=== PATIENT | female | born 1955 | race Caucasian/White ===

== ENCOUNTER 2018-09-26 20:41 | Observation (INO) ==
[2018-09-26] MEDS ORDERED: cefTRIAXone 1,000 MG in Water for inj. (sterile) 20 ML 10 ML IVP ONE (20:55)
[2018-09-26] MEDS ORDERED: Acetaminophen 325 MG TABLET PO ONE (20:55)
[2018-09-26] MEDS ORDERED: 0.9 % Sodium Chloride 1,000 ML IVC ONE ×2 (20:55→22:46)
[2018-09-26] MEDS ORDERED: Ondansetron 4 MG/2 ML VIAL IVP ONE (20:58)
[2018-09-26] MEDS ORDERED: methylPREDNISolone 125 MG in 0.9 % Sodium Chloride 100 ML IVPB ONE (21:04)
--- NOTE | 2018-09-26 21:05 | Emergency Department Note ---
Disposition Clinical Impression: Hyponatremia Fever Qualifiers: Fever type: unspecified Qualified Code(s): R50.9 - Fever, unspecified Disposition: Admitted As Inpatient Referrals: Liya Vivar CNP [Primary Care Provider] - Time of Disposition: 23:09 General Adult HPI - General Stated complaint: fever Time Seen by Provider: 09/26/18 20:55 Source: patient, EMS Mode of arrival: ambulatory Limitations: no limitations Nursing Notes Reviewed: Yes Vital Signs Reviewed: Yes - History of Present Illness HPI Narrative: Patient presents to the emergency department from EMS. Should the hospital until September 18. She had been treated for [place] nephritis and hyponatremia, GI bleed. The patient indicates that she has felt ill for several weeks. Fatigue reviewed, malaise, weakness, today she is that she had a fever, she has had some dysuria, she denies any cough, she reports nausea without vomiting, reports no diarrhea but does have urge to defecate. Denies any hematochezia but reports dark stool, denies any abdominal pain, chest pain, palpitations, shortness of breath History was augmented with electronic medical record of her recent visit and hospitalization at [facility] Onset (ago): week(s) Pain Scale: 0 Associated symptoms: Reports: confusion, cough, diaphoresis, fever/chills, loss of appetite, malaise, nausea/vomiting, weakness. Denies: chest pain, headaches, rash, seizure, shortness of breath, syncope - Related Data Home Medications Medication Instructions Recorded Confirmed Albuterol Sulfate [Proair Hfa] 2 puff IH Q4H PRN 11/11/16 09/26/18 Lisinopril [Zestril] 5 mg PO DAILY 11/11/16 09/26/18 Montelukast [Singulair] 10 mg PO DAILY 11/11/16 09/26/18 Simvastatin [Zocor] 40 mg PO HS 11/11/16 09/26/18 predniSONE [PredniSONE] 2 mg PO DAILY 11/12/16 09/26/18 Baclofen [Lioresal] 10 mg PO Q8H PRN 07/15/17 09/26/18 Levothyroxine [Synthroid] 100 mcg PO 0630 07/07/18 09/26/18 Loratadine [Allergy Relief] 10 mg PO DAILY 07/07/18 09/26/18 Omeprazole [PriLOSEC] 40 mg PO DAILY 07/07/18 09/26/18 Sennosides [Senna] 17.2 mg PO DAILY PRN 09/13/18 09/26/18 Sodium Chloride [Sodium Chloride 1 gm PO DAILY 09/13/18 09/26/18 Tab] Tiotropium [place] [Spiriva 2 puff IH DAILY 09/13/18 09/26/18 Respimat] Previous Rx's Medication Instructions Recorded Metoprolol [Lopressor] 12.5 mg PO BID #0 09/16/18 Ondansetron ODT [Zofran ODT] 4 mg PO Q6H PRN 14 Days #12 09/16/18 tab.rapdis Warfarin [Coumadin] 6 mg PO 1800 30 Days #30 tablet 09/16/18 Calcium Carb, Citrate/Vit D3 1 each PO TID 30 Days #90 tablet.er 09/18/18 [Calcium + D3 ER Tablet] Docusate [Colace] 100 mg PO BID PRN capsule 09/18/18 Potassium Chloride [K-Tab ER] 10 meq PO BID #60 tablet.er 09/18/18 Allergies Allergy/AdvReac Type Severity Reaction Status Date / Time No Known Allergies Allergy Verified 09/26/18 22:25 All systems ED: reviewed and negative except as stated. Review of Systems: As Per HPI Past Medical History - Past Medical History Medical history: Reports: arthritis, asthma, COPD, GERD, other Psychiatric history: Reports: no psych history - Social History Smoking Status: Former smoker Smokeless Tobacco Status: No Alcohol use: Reports: none Drug use: Reports: none Physical Exam Constitutional: Patient is oriented to person, place, and time. Skin color is pink. Appears well hydrated, body habitus obese, elderly, debilitated, appears older than her stated age . Appears acutely ill, feverish, and possibly toxic Head: Normocephalic and atraumatic. External ear exam normal Nose: Nose normal. Mouth/Throat: Uvula is midline, oropharynx is clear and moist and mucous membranes are normal. Eyes: Conjunctivae nl, extraocular motions and lids are normal. Pupils are equal, round, and reactive to light. Neck: Normal range of motion and phonation normal. Neck supple. Cardiovascular: Normal rate, regular rhythm, normal heart sounds. Pulmonary/Chest: No Respiratory distress. Respiratory Effort normal and breath sounds clear. Abdominal: Soft. Normal appearance and bowel sounds are normal. no tenderness, no masses, no guarding, no rebound Musculoskeletal: Good distal pulses. Soft compartments. Brisk cap refill. Extremities: Normal range of motion.Intact peripheral pulses. No Edema. Extremity skin color nl, no calf tenderness or palpable cords. Neurological: GCS 15. Does take some time to answer questions. Seemed to be delayed in her responses. But she is accurate and appropriate no focal weakness Patient is alert and oriented without evidence of obvious motor deficits Skin: Skin is intact. color is pale, hot, dry, cap refill is slightly delayed at the extremities Psychiatric: Patient has depressed mood and affect. Patient speech is normal and behavior is normal. Thought content normal. - General Limitations: no limitations General appearance: alert Course - Reevaluation(s) Reevaluation #1: Patient remains cooperative, conversational, appropriate. I explained test results to she and her family. The patient will require hospitalization because of the high fever. I did speak with Dr. Bruner combination operator for the patient's primar y nurse practitioner and decision was made after consultation that the patient is appropriate to be admitted here at [facility]. Dr. Bruner and agreed to accept patient in for admission. We talked about the patient's status, recent hospitalization, recent diagnoses, lab testing, chronic hyponatremia, and current presentation. We discussed specifically antibiotic choice and reevaluated recent micro-biology testing and sensitivities. She requested Levaquin be started and continued daily. We talked about warfarin and the patient states that she is on 6.5 mg and has not taken the dose tonight as she usually takes it in the evening. The patient and I also discussed CODE STATUS and she prefers to be resuscitated, full code. I reevaluated the patient after the urine came back which was negative. I reexamined her and she has no stiff neck, no signs of any meningeal irritation. She is no altered mental status. There is no skin changes or signs of abscess or cellulitis. Lower extremities without signs of DVT. Dr. Bruner requested that I write orders for admission as a courtesy and I have agreed to do so Time: 23:07 Vital Signs Temperature 103.1 F H 09/26/18 20:57 Pulse Rate 108 09/26/18 20:57 Respiratory Rate 22 09/26/18 20:57 Blood Pressure 113/57 09/26/18 20:57 O2 Sat by Pulse Oximetry 96 09/26/18 20:57 Temperature 99.8 F H 09/26/18 22:38 Pulse Rate 85 09/26/18 23:14 Respiratory Rate 22 09/26/18 20:57 Blood Pressure 104/56 09/26/18 23:14 O2 Sat by Pulse Oximetry 95 09/26/18 23:14 Oxygen Delivery Oxygen Delivery Nasal Cannula Medical Decision Making - MDM Narrative Medical decision making narrative: Patient has high fever and recent hospitalization with pyelonephritis. Likely same. May require repeat hospitalization. - Medical Records Medical records reviewed: Yes I reviewed the patient's medical records. - Lab Data Lab results reviewed: Yes I reviewed the patient's lab results. Result diagrams: 09/26/18 21:50 09/26/18 21:50 Lab Results 09/26/18 09/26/18 09/26/18 Range/Units 21:50 21:50 21:50 WBC 6.3 (4.3-11.1) K/mcL RBC 4.07 (3.82-4.97) M/mcL Hgb 10.4 L (11.5-15.4) g/dL Hct 32.2 L (35.3-44.9) % MCV 79.1 L (83.0-100.0) fL MCH 25.6 L (28.0-33.3) pg MCHC 32.3 (31.6-35.5) g/dL RDW 18.2 H (11.5-14.5) % Plt Count TNP MPV 12.3 (9.4-12.4) fL Immature Gran % 0.6 (0-4) % Seg Neutrophils % 82.1 % Lymphocytes % 9.4 % Monocytes % 7.6 % Eosinophils % 0.0 % Basophils % 0.3 % Neutrophils # 5.2 (1.6-8.9) K/mcL Lymphocytes # 0.6 (0.6-4.6) K/mcL Monocytes # 0.5 (0.0-1.3) K/mcL Eosinophils # 0.0 (0.0-0.6) K/mcL Basophils # 0.0 (0.0-0.2) K/mcL Platelet Estimate Slight Decrease L (Normal) Plt Count ,Citrate (140-400) K/mcL PT (9.4-12.1) Seconds INR Sodium 127 L (136-145) mEq/L Potassium 4.0 (3.5-5.1) mEq/L Chloride 96 L (98-107) mEq/L Carbon Dioxide 26 (23-29) mEq/L BUN 13 (8-23) mg/dL Creatinine 1.30 H (0.60-1.20) mg/dL Est GFR ( Amer) 50 L (> 60) Est GFR (Non-Af Amer) 41 L (> 60) BUN/Creatinine Ratio 10 (6-26) Glucose 120 H (70-105) mg/dL Calculated Osmolality 265 L (280-300) Lactic Acid 1.1 (0.5-2.2) mmol/L Calcium 8.2 L (8.6-10.3) mg/dL Total Bilirubin 0.8 (0.3-1.0) mg/dL Direct Bilirubin 0.3 H (0.0-0.2) mg/dL Indirect Bilirubin 0.5 (0.0-1.2) mg/dL AST 36 (13-39) Units/L ALT 25 (7-52) Units/L Alkaline Phosphatase 137 H (34-104) Units/L Troponin I 0.03 (< 0.04) ng/mL Serum Total Protein 6.9 (6.4-8.9) g/dL Albumin 2.7 L (3.5-5.7) g/dL Globulin 4.2 H (2.4-3.5) g/dL Albumin/Globulin Ratio 0.6 L (1.1-2.2) Urine Color (Yellow) Urine Clarity (Clear) Urine pH (5.0-8.0) pH Units Ur Specific [place] (1.010-1.025) Urine Protein (Neg-Trace) mg/dL Urine Glucose (UA) (Normal) mg/dL Urine Ketones (Negative) mg/dL Urine Blood (Negative) Urine Nitrite (Negative) Urine Bilirubin (Negative) Urine Urobilinogen (Normal) mg/dL Ur Leukocyte Esterase (Negative) Urine Microscopic RBC (0-3) per hpf Ur Squamous Epith Cells (None-Few) per lpf Amorphous Sediment (Few) Ur Culture Indicated? (NO) 09/26/18 09/26/18 09/26/18 Range/Units 21:50 21:50 22:30 WBC (4.3-11.1) K/mcL RBC (3.82-4.97) M/mcL Hgb (11.5-15.4) g/dL Hct (35.3-44.9) % MCV (83.0-100.0) fL MCH (28.0-33.3) pg MCHC (31.6-35.5) g/dL RDW (11.5-14.5) % Plt Count MPV 10.1 (9.4-12.4) fL Immature Gran % (0-4) % Seg Neutrophils % % Lymphocytes % % Monocytes % % Eosinophils % % Basophils % % Neutrophils # (1.6-8.9) K/mcL Lymphocytes # (0.6-4.6) K/mcL Monocytes # (0.0-1.3) K/mcL Eosinophils # (0.0-0.6) K/mcL Basophils # (0.0-0.2) K/mcL Platelet Estimate (Normal) Plt Count ,Citrate 96 L (140-400) K/mcL PT 17.7 H (9.4-12.1) Seconds INR 1.6 Sodium (136-145) mEq/L Potassium (3.5-5.1) mEq/L Chloride (98-107) mEq/L Carbon Dioxide (23-29) mEq/L BUN (8-23) mg/dL Creatinine (0.60-1.20) mg/dL Est GFR ( Amer) (> 60) Est GFR (Non-Af Amer) (> 60) BUN/Creatinine Ratio (6-26) Glucose (70-105) mg/dL Calculated Osmolality (280-300) Lactic Acid (0.5-2.2) mmol/L Calcium (8.6-10.3) mg/dL Total Bilirubin (0.3-1.0) mg/dL Direct Bilirubin (0.0-0.2) mg/dL Indirect Bilirubin (0.0-1.2) mg/dL AST (13-39) Units/L ALT (7-52) Units/L Alkaline Phosphatase (34-104) Units/L Troponin I (< 0.04) ng/mL Serum Total Protein (6.4-8.9) g/dL Albumin (3.5-5.7) g/dL Globulin (2.4-3.5) g/dL Albumin/Globulin Ratio (1.1-2.2) Urine Color Yellow (Yellow) Urine Clarity Slightly Cloudy A (Clear) Urine pH 6.0 (5.0-8.0) pH Units Ur Specific [place] 1.010 (1.010-1.025) Urine Protein Trace (Neg-Trace) mg/dL Urine Glucose (UA) Normal (Normal) mg/dL Urine Ketones Negative (Negative) mg/dL Urine Blood Trace-lysed H (Negative) Urine Nitrite Negative (Negative) Urine Bilirubin Negative (Negative) Urine Urobilinogen Normal (Normal) mg/dL Ur Leukocyte Esterase Negative (Negative) Urine Microscopic RBC 0-3 (0-3) per hpf Ur Squamous Epith Cells Few (None-Few) per lpf Amorphous Sediment Few (Few) Ur Culture Indicated? NO (NO) - Radiology Data Radiology results reviewed: Yes I reviewed the patient's radiology results. port CXR: impression from rad: " stable port study" - EKG Data EKG #1 EKG attestation: Yes I reviewed and interpreted this EKG. EKG results narrative: ECG sinus rhythm rate of 101. Sinus tachycardia. Incomplete right bundle- branch block. Deep T-wave inversion V1 and V2. Compared to previous ECG on 09/12. Same changes. V1 and V2 appear same. Unchanged
[2018-09-26] MEDS ORDERED: 0.9 % Sodium Chloride 1,000 ML IVC SCH ×2 (21:15→23:41)
[2018-09-26 21:57] LABS: Basophils % 0.3 %; Hematocrit 32.2 % (35.3-44.9); Hemoglobin 10.4 g/dL (11.5-15.4); Immature Granulocytes % 0.6 % (0-4); Lymphocytes # 0.6 K/mcL (0.6-4.6); Lymphocytes % 9.4 %; Mean Corpuscular HGB Conc 32.3 g/dL (31.6-35.5); Mean Corpuscular Hemoglobin 25.6 pg (28.0-33.3); Mean Corpuscular Volume 79.1 fL (83.0-100.0); Mean Platelet Volume 12.3 fL (9.4-12.4); Monocytes # 0.5 K/mcL (0.0-1.3); Monocytes % 7.6 %; Neutrophils # 5.2 K/mcL (1.6-8.9); Red Blood Count 4.07 M/mcL (3.82-4.97); Red Cell Distribution Width 18.2 % (11.5-14.5); Segmented Neutrophils % 82.1 %
[2018-09-26 21:59] LABS: INR 1.6; Prothrombin Time 17.7 Seconds (9.4-12.1)
[2018-09-26 22:09] LABS: Troponin I 0.03 ng/mL (< 0.04)
[2018-09-26 22:10] LABS: Albumin 2.7 g/dL (3.5-5.7); Albumin/Globulin Ratio 0.6 (1.1-2.2); Bilirubin,Direct 0.3 mg/dL (0.0-0.2); Bilirubin,Indirect 0.5 mg/dL (0.0-1.2); Bilirubin,Total 0.8 mg/dL (0.3-1.0); Calcium 8.2 mg/dL (8.6-10.3); Globulin 4.2 g/dL (2.4-3.5); Total Protein 6.9 g/dL (6.4-8.9)
[2018-09-26 22:28] LABS: Mean Platelet Volume 10.1 fL (9.4-12.4)
[2018-09-26 22:31] LABS: Platelet Estimate Slight Decrease (Normal)
[2018-09-26 22:37] LABS: Bilirubin,Urine Negative (Negative); Blood,Urine Trace-lysed (Negative); Clarity,Urine Slightly Cloudy (Clear); Glucose,Urine (UA) Normal (Normal); Ketones,Urine Negative (Negative); Leukocyte Esterase,Urine Negative (Negative); Nitrite,Urine Negative (Negative); Protein,Urine Trace mg/dL (Neg-Trace); Urobilinogen,Urine Normal (Normal)
[2018-09-26 22:44] LABS: Amorphous Sediment,Urine Few (Few); Color,Urine Yellow (Yellow); RBC,Urine 0-3 per hpf (0-3); Squamous Epithelial Cell,Urine Few per lpf (None-Few)
[2018-09-26] MEDS ORDERED: WARFARIN PO ONE (23:00)
[2018-09-26] MEDS ORDERED: Sennosides 8.6 MG TABLET PO PRN (23:41)
[2018-09-26] MEDS ORDERED: Baclofen 10 MG TABLET PO PRN (23:41)
[2018-09-26] MEDS ORDERED: Acetaminophen 325 MG TABLET PO PRN (23:41)
[2018-09-26] MEDS ORDERED: Naloxone 0.4 MG/ML INJ IVP PRN (23:41)
[2018-09-26] MEDS ORDERED: Levofloxacin 750 MG/150 ML 750 MG/150 ML BAG IVPB SCH (23:41)
[2018-09-26] MEDS ORDERED: Ondansetron ODT 4 MG TAB.RAPDIS PO PRN (23:41)
[2018-09-27] MEDS: 0.9 % Sodium Chloride 1,000 ML IVC SCH ×5 (00:43→19:17)
[2018-09-27] MEDS: Levofloxacin 500 MG/100 ML 500 MG/100 ML BAG IVPB SCH (00:45)
[2018-09-27 06:11] LABS: Immature Granulocytes % 1.1 % (0-4); Lymphocytes # 0.6 K/mcL (0.6-4.6); Lymphocytes % 20.4 %; Mean Corpuscular HGB Conc 31.9 g/dL (31.6-35.5); Mean Corpuscular Hemoglobin 25.3 pg (28.0-33.3); Mean Corpuscular Volume 79.3 fL (83.0-100.0); Mean Platelet Volume 10.3 fL (9.4-12.4); Monocytes # 0.1 K/mcL (0.0-1.3); Monocytes % 4.8 %; Red Blood Count 3.28 M/mcL (3.82-4.97); Segmented Neutrophils % 73.7 %
[2018-09-27 06:14] LABS: INR 1.7; Prothrombin Time 18.9 Seconds (9.4-12.1)
[2018-09-27 06:24] LABS: BUN/Creatinine Ratio 13 (6-26); Blood Urea Nitrogen 13 mg/dL (8-23); Carbon Dioxide 23 mEq/L (23-29); Chloride 105 mEq/L (98-107); Glucose 170 mg/dL (70-105); Osmolality,Calculated 274 (280-300); Potassium 3.9 mEq/L (3.5-5.1); Sodium 130 mEq/L (136-145); eGFR For Non-African Americans 57 (> 60)
[2018-09-27 06:35] LABS: Hemoglobin 8.3 g/dL (11.5-15.4)
[2018-09-27 06:38] LABS: Platelet Estimate Slight Decrease (Normal)
[2018-09-27] MEDS ORDERED: predniSONE 1 MG TABLET PO SCH (09:00)
[2018-09-27] MEDS ORDERED: Tiotropium 18 MCG inhalation IH SCH (09:00)
[2018-09-27] MEDS: Calcium + D3 PO SCH ×3 (09:27→21:58)
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
[2018-09-27 14:37] LABS: Hematocrit 25.9 % (35.3-44.9); Hemoglobin 8.4 g/dL (11.5-15.4); Immature Granulocytes % 0.3 % (0-4); Lymphocytes # 0.6 K/mcL (0.6-4.6); Lymphocytes % 18.3 %; Mean Corpuscular HGB Conc 32.4 g/dL (31.6-35.5); Mean Corpuscular Hemoglobin 25.7 pg (28.0-33.3); Mean Corpuscular Volume 79.2 fL (83.0-100.0); Monocytes # 0.3 K/mcL (0.0-1.3); Monocytes % 9.8 %; Neutrophils # 2.2 K/mcL (1.6-8.9); Red Blood Count 3.27 M/mcL (3.82-4.97); Red Cell Distribution Width 18.2 % (11.5-14.5); Segmented Neutrophils % 71.6 %
[2018-09-27 14:50] LABS: Platelet Estimate Slight Decrease (Normal)
[2018-09-27] MEDS: methylPREDNISolone 125 MG/2 ML VIAL IVP SCH (16:49)
[2018-09-27] MEDS: Sucralfate 1 GM TABLET PO SCH ×2 (16:49→21:59)
[2018-09-27] MEDS ORDERED: *HR* Warfarin 3 MG TABLET PO SCH (18:00)
[2018-09-27] MEDS ORDERED: *HR* Warfarin 3 MG TABLET PO ONE (22:54)
[2018-09-28] MEDS: 0.9 % Sodium Chloride 1,000 ML IVC SCH ×3 (00:08→12:08)
[2018-09-28] MEDS: Levofloxacin 500 MG/100 ML 500 MG/100 ML BAG IVPB SCH (01:34)
[2018-09-28 05:58] LABS: Hematocrit 25.6 % (35.3-44.9); Hemoglobin 8.1 g/dL (11.5-15.4); Immature Granulocytes % 0.4 % (0-4); Lymphocytes # 0.5 K/mcL (0.6-4.6); Lymphocytes % 22.2 %; Mean Corpuscular HGB Conc 31.6 g/dL (31.6-35.5); Mean Corpuscular Hemoglobin 25.5 pg (28.0-33.3); Mean Corpuscular Volume 80.5 fL (83.0-100.0); Mean Platelet Volume 10.1 fL (9.4-12.4); Monocytes # 0.3 K/mcL (0.0-1.3); Monocytes % 11.6 %; Neutrophils # 1.5 K/mcL (1.6-8.9); Red Blood Count 3.18 M/mcL (3.82-4.97); Red Cell Distribution Width 18.4 % (11.5-14.5); Segmented Neutrophils % 65.8 %
[2018-09-28] MEDS: methylPREDNISolone 125 MG/2 ML VIAL IVP SCH (06:01)
[2018-09-28 06:03] LABS: INR 2.2; Prothrombin Time 24.6 Seconds (9.4-12.1)
[2018-09-28] MEDS: Sucralfate 1 GM TABLET PO SCH ×3 (06:03→15:26)
[2018-09-28 06:14] LABS: Albumin 2.2 g/dL (3.5-5.7); Albumin/Globulin Ratio 0.6 (1.1-2.2); BUN/Creatinine Ratio 14 (6-26); Bilirubin,Direct 0.1 mg/dL (0.0-0.2); Bilirubin,Indirect 0.2 mg/dL (0.0-1.2); Bilirubin,Total 0.3 mg/dL (0.3-1.0); Blood Urea Nitrogen 10 mg/dL (8-23); Calcium 6.4 mg/dL (8.6-10.3); Carbon Dioxide 24 mEq/L (23-29); Chloride 109 mEq/L (98-107); Globulin 3.6 g/dL (2.4-3.5); Glucose 121 mg/dL (70-105); Osmolality,Calculated 278 (280-300); Potassium 3.5 mEq/L (3.5-5.1); Sodium 134 mEq/L (136-145); Total Protein 5.8 g/dL (6.4-8.9); eGFR For Non-African Americans > 60 (> 60)
[2018-09-28 06:19] LABS: Platelet Estimate Slight Decrease (Normal)
[2018-09-28] MEDS: Calcium + D3 PO SCH ×2 (09:02→14:09)
[2018-09-28 09:15] LABS: Folate 17.7 ng/mL (3.0-16.0)
[2018-09-28 09:28] LABS: Hepatitis B Surface Antigen Nonreactive (Nonreactive)
[2018-09-28 09:57] LABS: HIV-1&2 Antibody & p24 Ag Nonreactive (Nonreactive); Hepatitis C Virus Antibody Nonreactive (Nonreactive)
[2018-09-28 09:58] LABS: Hepatitis B Core IgM Nonreactive (Nonreactive)
[2018-09-28 09:59] LABS: Hepatitis A Antibody IgM Nonreactive (Nonreactive)
--- NOTE | 2018-09-28 12:42 | Internal Med Progress Note ---
Date of Encounter: 09/28/18 - Assessment and plan (1) Fever Current Visit: Yes Status: Acute Assessment and plan: blood and urine cultures pending. she has seen id. on levaquin for uti per the ER. Qualifiers: Qualified Code(s): R50.9 - Fever, unspecified (2) Hyponatremia Current Visit: Yes Status: Acute Assessment and plan: better with ivf (3) RAFAEL (acute kidney injury) Current Visit: Yes Status: Acute Assessment and plan: baseline with the ivf, due to dehydration (4) Anemia Current Visit: Yes Status: Acute Assessment and plan: decreased yesterday, stable today. like due to hemodilution. Qualifiers: Anemia type: unspecified type Qualified Code(s): D64.9 - Anemia, u nspecified (5) COPD (chronic obstructive pulmonary disease) Current Visit: No Status: Acute Assessment and plan: she is not compliant about taking inhalers at home due to the cost and she does not feel that it helps. she is not having symptoms Qualifiers: Qualified Code(s): J44.9 - Chronic obstructive pulmonary disease, unspecified (6) DVT prophylaxis Current Visit: No Status: Acute Assessment and plan: on coumadin inr 2.2 (7) History of aortic valve replacement Current Visit: Yes Status: Acute Assessment and plan: on coumadin her bp does not tolerate any beta jovanni or acei (8) Hypotension Current Visit: Yes Status: Acute Assessment and plan: stable unable to tolerate her bp medication. her bp was low at [facility]. cortisol level normal. getting increased steroid due to the [facility] steroid use Qualifiers: Hypotension type: unspecified hypotension type Qualified Code(s): I95.9 - Hypotension, unspecified (9) Thrombocytopenia Current Visit: Yes Status: Acute (10) Pancytopenia Current Visit: Yes Status: Acute Assessment and plan: will have her follow up with heme onc (11) Unintentional weight loss Current Visit: Yes Status: Acute Assessment and plan: she has seen gi, heme onc, had colonoscopy, egd, hida scan mammogram, ct chest and abd - Constitutional Vitals: Temp Pulse Resp BP Pulse Ox 97.5 F L 66 14 154/76 98 09/28/18 06:56 09/28/18 10:34 09/28/18 10:34 09/28/18 10:34 09/28/18 10:34 General appearance: Present: A&O X 3, morbidly obese, pleasant, no acute distress. Absent: answers questions appropriately (She forgets a lot answers family acid to prompting) Internal Medicine: Result - Labs CBC & Chem 7: 09/28/18 05:55 09/28/18 05:55 Labs: Short CBC 09/27/18 09/28/18 Range/Units 14:00 05:55 WBC 3.1 L 2.3 L (4.3-11.1) K/mcL Hgb 8.4 L 8.1 L (11.5-15.4) g/dL Hct 25.9 L 25.6 L (35.3-44.9) % Plt Count TNP TNP Neutrophils # 2.2 1.5 L (1.6-8.9) K/mcL BMP 09/28/18 05:55 Sodium 134 L Potassium 3.5 Chloride 109 H Carbon Dioxide 24 BUN 10 Creatinine 0.70 Glucose 121 H Calcium 6.4 L Liver Function 09/28/18 Range/Units 05:55 Total Bilirubin 0.3 (0.3-1.0) mg/dL Direct Bilirubin 0.1 (0.0-0.2) mg/dL AST 49 H (13-39) Units/L ALT 32 (7-52) Units/L Alkaline Phosphatase 120 H (34-104) Units/L Albumin 2.2 L (3.5-5.7) g/dL - ABG Interpretation ABG results: PT/INR, D-dimer PT 24.6 Seconds (9.4-12.1) H 09/28/18 05:55 - Impressions Impressions Lumbar Spine X-Ray 09/27/18 14:33 IMPRESSION: 1. Mild degenerative changes lumbar spine. 2. Stable appearing transitional anatomy with partial lumbarization S1. 3. No lumbar fracture or listhesis. 4. Mild, bilaterally symmetrical SI joint osteoarthritis is noted. 5. Again seen is infrarenal AAA requiring follow-up imaging in 5 years*. ____ *Recommend follow-up every 5 years. Reference: J Vasc Surg 2009 Oct;50(4 Suppl):S2-49. RECOMMENDATION: Recommend follow-up every 5 years. Reference: J Vasc Surg 2009 Oct;50(4 Suppl):S2-49. D/ / Tyler Ambriz / Tyler Ambriz Interpreting Provider: Tyler Ambriz - VTE Reasons for not Prescribing Prophylaxis: Not indicated-Anticoagulated or INR therapeutic Documentation of Mechanical Device: Graduated compression elastic hosiery Consult Discharge Plan - Plan
[2018-09-28 13:27] VITALS: BP 169/80
--- NOTE | 2018-09-28 14:24 | Discharge Summary ---
- NOTES TO OUTPATIENT PROVIDER Notes to Outpatient Provider: blood culture negative at 36 hours. she needs hematology f/u has appt on 10/05/18 Orders not resulted at time of discharge: Pending orders 09/29/18 04:00 PT/INR [Prothrombin Time INR] [COAG] AM 0400 09/30/18 04:00 PT/INR [Prothrombin Time INR] [COAG] AM 0400 10/01/18 04:00 PT/INR [Prothrombin Time INR] [COAG] AM 0400 10/02/18 04:00 PT/INR [Prothrombin Time INR] [COAG] AM 0400 09/26/18 21:50 Culture,Blood [BC] Stat Date of Encounter: 09/28/18 Time of Encounter: 14:22 - Discharge Diagnosis (1) Fever Priority: Primary Status: Acute Comments: She had a fever on admission she has not had any fever since. Blood cultures are negative at 36 hours she feels better she has not felt ill anymore. She was started on Levaquin for possible UTI the urine culture was not sent but she will did have a positive urine culture 2 weeks ago at [facility] so I will continue 2 more days of oral Levaquin. Qualifiers: Fever type: unspecified Qualified Code(s): R50.9 - Fever, unspecified (2) Hyponatremia Priority: Secondary Status: Acute Comments: This is likely due to dehydration. It has gotten better with IV fluids and her oral sodium pill (3) RAFAEL (acute kidney injury) Priority: Secondary Status: Acute Comments: Likely due to dehydration resolved with IV fluids (4) Anemia Priority: Secondary Status: Acute Comments: She did have a 2 g drop from her initial hemoglobin but this is likely due to hemoconcentration and likely dropped with her IV fluids. It has been stable. She has seen hematology for this in the past. We will make her a follow-up appointment now that she has the pancytopenia. 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 She is also had an EGD. She had vitamin B12 folates those were all in range. HIV and hepatitis were negative as well us with those those could be negative for up to 6 months after an exposure. Qualifiers: Anemia type: unspecified type Qualified Code(s): D64.9 - Anemia, unspecified (5) COPD (chronic obstructive pulmonary disease) Priority: Secondary Status: Acute Comments: Assessment stable at has not been an active issue for her she is not taking most of the inhalers at home due to the fact that the cost too much and she does not feel that they work. (6) DVT prophylaxis Priority: Secondary Status: Acute Comments: She was on Coumadin while she was here initially was subtherapeutic but it was 2.2 on the day of discharge. Continue her home dose of 6 mg that she has been normal she is here (7) History of aortic valve replacement Priority: Secondary Status: Acute Comments: She is aware of the risk of thromboembolic events with a mechanical aortic valve discussed the importance of not missing any doses of Coumadin and been regular about taking the Coumadin and regular about checking her INRs. (8) Hypotension Priority: Secondary Status: Acute Comments: Her blood pressure pills up and held. She had a cortisol at a [facility] L[facility] her blood pressure was low and that was negative. Her blood pressures continue to remain low she did receive IV fluids her lactate was in range of 0.8 Qualifiers: Hypotension type: unspecified hypotension type Qualified Code(s): I95.9 - Hypotension, unspecified (9) Thrombocytopenia Priority: Secondary Status: Acute Comments: Will refer her back to hematology she has appointment on October 05 discussed that she may need a bone marrow biopsy but that would be up to hematology to decide further workup. She did get some IV Solu-Medrol here that did not make a difference in her platelet count. (10) Pancytopenia Priority: Secondary Status: Acute Comments: She has an appointment with hematology. Her counts have been stable. (11) Unintentional weight loss Priority: Secondary Status: Acute Comments: She has seen GI she had EGD colonoscopy she has had a long CT scan and abdominal CT scan her mammogram is up-to-date. Difficult to say the exact cause of this she definitely has decreased appetite. This could be related to long-term prednisone use or something else. She has seen GI will have her follow back up with them. Hospital course: Ms. Mckenzie is a 63 year old female - Time Spent with Patient Total time spent providing and/or coordinating discharge services: - Discharge Medications Prescriptions: levoFLOXacin [Levaquin] 500 mg PO DAILY #2 tablet Sucralfate [Carafate] 1 gm PO QIDAC #120 tablet Home Medications: Albuterol Sulfate [Proair Hfa] 2 puff IH Q4H PRN 11/11/16 [History] Montelukast [Singulair] 10 mg PO DAILY 11/11/16 [History] Simvastatin [Zocor] 40 mg PO HS 11/11/16 [History] predniSONE [PredniSONE] 2 mg PO DAILY 11/12/16 [History] Baclofen [Lioresal] 10 mg PO Q8H PRN 07/15/17 [History] Levothyroxine [Synthroid] 100 mcg PO 0630 07/07/18 [History] Omeprazole [PriLOSEC] 40 mg PO DAILY 07/07/18 [History] Sennosides [Senna] 17.2 mg PO DAILY PRN 09/13/18 [History] Sodium Chloride [Sodium Chloride Tab] 1 gm PO DAILY 09/13/18 [History] Warfarin [Coumadin] 6 mg PO 1800 30 Days #30 tablet 09/16/18 [Rx] Calcium Carb, Citrate/Vit D3 [Calcium + D3 ER Tablet] 1 each PO TID 30 Days #90 tablet.er 09/18/18 [Rx] Docusate [Colace] 100 mg PO BID PRN capsule 09/18/18 [Rx] Potassium Chloride [K-Tab ER] 10 meq PO BID #60 tablet.er 09/18/18 [Rx] Acetaminophen [Tylenol] 650 mg PO Q6HR PRN tablet 09/28/18 [Rx] Calcium Carbonate [Tums] 500 mg PO TID tab.chew 09/28/18 [Rx] Cholecalciferol (D-3) [Vitamin D] 1,000 unit PO DAILY tablet 09/28/18 [Rx] Paroxetine [Paxil] 20 mg PO DAILY tablet 09/28/18 [Rx] Sucralfate [Carafate] 1 gm PO QIDAC #120 tablet 09/28/18 [Rx] Warfarin [Coumadin] 6 mg PO 1800 tablet 09/28/18 [Rx] levoFLOXacin [Levaquin] 500 mg PO DAILY #2 tablet 09/28/18 [Rx] Allergies/Adverse Reactions: Allergy/AdvReac Type Severity Reaction Status Date / Time No Known Allergies Allergy Verified 09/26/18 22:25 Date of admission: 09/26/18 23:25 Primary care physician: Liya Vivar CNP Consults: 09/27/18 00:37 PT [Consult to Physical Therapy] [CONS] Routine Comment: Evaluate, develop and implement POC Reason for Consult: Eval and Treat Does patient have active BEDREST order?: No Is patient medically & hemodynamically stable?: Yes Patient assessed for mobility or mobilized this visit?: No 09/26/18 23:41 Consult to Occupational Therapy [CONS] Routine Comment: Evaluate, develop and implement POC Reason for Consult: fall risk Does patient have active BEDREST order?: No Is patient medically & hemodynamically stable?: Yes Patient assessed for mobility or mobilized this visit?: No - Constitutional Vitals: Temp Pulse Resp BP Pulse Ox 97.4 F L 70 20 169/80 100 09/28/18 11:00 09/28/18 11:00 09/28/18 11:00 09/28/18 11:00 09/28/18 11:00 General appearance: Present: A&O X 3, morbidly obese, pleasant, no acute distress. Absent: answers questions appropriately (She forgets a lot answers family acid to prompting) - Head Head exam: Present: atraumatic, normocephalic - Neck Neck exam general surgery: Present: supple, trachea midline. Absent: lymphadenopathy - Respiratory Respiratory exam: Present: CTAB - Cardiovascular Cardiovascular exam: Present: RRR (mechanical valve) - GI/Abdominal GI/Abdominal exam: Present: distended, normal bowel sounds, soft, no peritoneal signs. Absent: guarding, tenderness - Extremities Exam Extremities exam: Present: warm. Absent: pedal edema (byron hose on) - Skin Skin exam: Present: dry, warm. Absent: rash - Patient Status Disposition: Home Health Service Condition: Good Overall status at discharge: patient is progressing back to baseline - Discharge Instructions Follow Up With: Liya Vivar CNP [Primary Care Provider] - 10/03/18 10:20 am Forms: ED Satisfaction Letter Additional Instructions: follow up at the cancer center on 10/05/18 at 9:30 am - VTE Reasons for not Prescribing Prophylaxis: Not indicated-Anticoagulated or INR therapeutic Documentation of Mechanical Device: Graduated compression elastic hosiery
--- NOTE | 2018-09-28 14:26 | Physician Discharge Referral ---
Home Health/Hosp Referral Info Transfer to: Home Health - Diagnosis (1) Fever Priority: Primary Status: Acute (2) Hyponatremia Priority: Secondary Status: Acute (3) RAFAEL (acute kidney injury) Priority: Secondary Status: Acute (4) Anemia Priority: Secondary Status: Acute (5) COPD (chronic obstructive pulmonary disease) Priority: Secondary Status: Acute (6) DVT prophylaxis Priority: Secondary Status: Acute (7) History of aortic valve replacement Priority: Secondary Status: Acute (8) Hypotension Priority: Secondary Status: Acute (9) Thrombocytopenia Priority: Secondary Status: Acute (10) Pancytopenia Priority: Secondary Status: Acute (11) Unintentional weight loss Priority: Secondary Status: Acute - Respiratory Orders Smoking Cessation: Smoking cessation has been advised. For more information, call the [employer] Quit Line at 9-365-UURLNOW. - Diet/Nutrition Diet/Nutrition Orders: Cardiac - Activity Activity Orders: Walker - Services Needed Following services are medically necessary services: Nursing, Home Health Aide, Physical Therapy, Occupational Therapy - Transfer Medications Home Medications: Albuterol Sulfate [Proair Hfa] 2 puff IH Q4H PRN 11/11/16 [History] Lisinopril [Zestril] 5 mg PO DAILY 11/11/16 [History] Montelukast [Singulair] 10 mg PO DAILY 11/11/16 [History] Simvastatin [Zocor] 40 mg PO HS 11/11/16 [History] predniSONE [PredniSONE] 2 mg PO DAILY 11/12/16 [History] Baclofen [Lioresal] 10 mg PO Q8H PRN 07/15/17 [History] Levothyroxine [Synthroid] 100 mcg PO 0630 07/07/18 [History] Omeprazole [PriLOSEC] 40 mg PO DAILY 07/07/18 [History] Sennosides [Senna] 17.2 mg PO DAILY PRN 09/13/18 [History] Sodium Chloride [Sodium Chloride Tab] 1 gm PO DAILY 09/13/18 [History] Metoprolol [Lopressor] 12.5 mg PO BID #0 09/16/18 [Rx] Ondansetron ODT [Zofran ODT] 4 mg PO Q6H PRN 14 Days #12 tab.rapdis 09/16/18 [Rx] Warfarin [Coumadin] 6 mg PO 1800 30 Days #30 tablet 09/16/18 [Rx] Calcium Carb, Citrate/Vit D3 [Calcium + D3 ER Tablet] 1 each PO TID 30 Days #90 tablet.er 09/18/18 [Rx] Docusate [Colace] 100 mg PO BID PRN capsule 09/18/18 [Rx] Potassium Chloride [K-Tab ER] 10 meq PO BID #60 tablet.er 09/18/18 [Rx] Allergies/Adverse Reactions: Allergy/AdvReac Type Severity Reaction Status Date / Time No Known Allergies Allergy Verified 09/26/18 22:25 Certification: Further, I certify that my clinical findings support that this patient is homebound (i.e. absences from home require considerable and taxing effort and are for medical reasons or hinduism services or infrequently or short duration when for other reasons) because: use of walker frequent hospitalization, falls, pancytopenia, 50# unintentional weight loss Homebound Reason: Patient requires assistance of a person or device to safely leave home, Leaving home requires considerable and taxing effort due to condition Attestation: My signature below is to certify that this patient is under my care and that I, or nurse practitioner, or a physician's construction management assistant working with me, has a [id number] encounter with this patient.
--- NOTE | 2018-09-28 16:10 | Electrocardiograph Report ---
[address] [place], [place] [address] Test Date: 2018-09-26 Pat Name: Mignon Mckenzie Department: 2000 Room: 112 Gender: F Retail Property Manager: : [id number] Requested By: Natalia Martel Order Number: [id number] Reading MD: Joey Peace Measurements Intervals [place] Rate: 101 P: 55 [place]: 158 QRS: 44 QRSD: 99 T: 74 QT: 325 QTc: 383 Interpretive Statements SINUS TACHYCARDIA INCOMPLETE RIGHT BUNDLE BRANCH BLOCK MODERATE ST DEPRESSION Electronically Signed On 09-28-2018 16:09:03 EST by Joey Peace
[2018-09-29] MEDS ORDERED: Cholecalciferol (D-3) 1,000 UNIT TABLET PO SCH (09:00)
[2018-09-29 16:00] LABS: Acinetobacter baumannii by PCR Not Detected (Not Detect); Candida albicans by PCR Not Detected (Not Detect); Candida glabrata by PCR Not Detected (Not Detect); Candida krusei by PCR Not Detected (Not Detect); Candida parapsilosis by PCR Not Detected (Not Detect); Candida tropicalis by PCR Not Detected (Not Detect); Enterobacter cloacae Cmplx PCR Not Detected (Not Detect); Enterobacteriaceae by PCR Not Detected (Not Detect); Enterococcus by PCR DETECTED (Not Detect); Escherichia coli by PCR Not Detected (Not Detect); Klebsiella oxytoca by PCR Not Detected (Not Detect); Klebsiella pneumoniae by PCR Not Detected (Not Detect); Proteus by PCR Not Detected (Not Detect); Pseudomonas aeruginosa by PCR Not Detected (Not Detect); Serratia marcescens by PCR Not Detected (Not Detect); Staphylococcus aureus by PCR Not Detected (Not Detect); Staphylococcus by PCR Not Detected (Not Detect); Streptococcus agalactiae(B)PCR Not Detected (Not Detect); Streptococcus by PCR Not Detected (Not Detect); Streptococcus pneumoniae PCR Not Detected (Not Detect); Streptococcus pyogenes (A) PCR Not Detected (Not Detect); vanA/B Vancomycin-Resist Genes Not Detected (Not Detect)
== END 2018-09-28 15:40 | disposition home health service (06) ==
LOC: INPGRE 20:41 → EMEROOGRE 20:41 → INPGRE 23:57
PROVIDERS: ADMIT Family Medicine; ATTEND Family Medicine